=== PATIENT | male | born 1950 | race Caucasian/White ===

== ENCOUNTER 2025-06-01 00:04 | Emergency (ER) | payer MEDICARE, BC, SELFPAY ==
[2025-06-01] VITALS (10 sets, daily range): BP systolic 126–149; BP diastolic 58–75; PULSE 67–74; RESP 15–30; TEMP 36.1; O2SAT 95–98; BMI 25.9
--- NOTE | 2025-06-01 00:31 | ED.GENADULT ---
HPI - General Adult General Chief complaint: Urogenital-Male Stated complaint: Possible UTI, has Parkinson's Time Seen by Provider: 06/01/25 00:10 History of Present Illness HPI narrative: 74-year-old male patient history of Parkinson's was seen on the May 28 at [facility] with dark urine but not given any antibiotics and sent home. Today caregiver brings inpatient stating that he has been answering questions inappropriately and is concerned that there is something else going on. Patient states he fell few days ago and is having some left sided chest wall pain with breathing and movement. but otherwise has no other complaints head to toe. He denies fever, chills, bodyaches, sore throat, nausea, vomiting, diarrhea, urinary complaints, weakness, headache, dizziness. Other than what is stated 14 point review of system is negative. Related Data Previous Rx's ?Medication ?Instructions ?Recorded tamsulosin 0.4 mg capsule (Flomax) 0.4 mg PO DAILY #30 caps 06/01/25 Allergies Allergy/AdvReac Type Severity Reaction Status Date / Time Sulfa (Sulfonamide Allergy Verified 06/01/25 00:27 Antibiotics) Review of Systems Review of Systems ROS Unobtainable: All systems reviewed & are unremarkable except as noted in HPI and below Exam Narrative Exam Narrative: GENERAL: [74] year old patient appears stated age. Well-developed patient, in mild distress. HEAD: Atraumatic. Normocephalic. EYES: Pupils equal round and reactive. Extraocular motions intact. No scleral icterus. No injection or drainage. ENT: Nose without bleeding, purulent drainage. Throat without erythema, tonsillar hypertrophy or exudate. Airway patent. NECK: Trachea midline. Non tender CARDIOVASCULAR: Regular rate and rhythm without murmurs, gallops, or rubs. RESPIRATORY: Clear to auscultation. Breath sounds equal bilaterally. No wheezes, rales, or rhonchi. L sided chest wall TTP 6-10 GASTROINTESTINAL: Abdomen soft, non-tender, nondistended. EXTREMITIES: No edema or joint tenderness. BACK: Nontender without deformity or crepitance. No flank tenderness. NEURO: AOx3. SKIN: No rash or erythema of visible areas Medical Decision Making Imaging Data Chest x-ray: Radiologist's Impression: [address] [address] XRay Report Signed Patient: Freeman Brock MR#: [id number] : 1950 Acct:[id number] Age/Sex: 74 / M Date of Service: 06/01/25 Loc: ED Accession Number: [id number] Procedure: XR ribs LT 2V Ordering Provider: Jay He D.O. PROCEDURE: XR RIBS LT 2V INDICATIONS: fall/trauma TECHNIQUE: 3 views of the ribs were acquired. COMPARISON: None. FINDINGS: Surgical changes and devices: None. Bones and chest wall: No fractures or dislocations. No suspicious bony lesions. Overlying soft tissues appear unremarkable. Lungs and pleura: The visualized lung appears clear. No pleural effusions or pneumothorax are visible. IMPRESSION: No visualized acute fracture or dislocation. However, if clinical concern and/or pain persist, short interval imaging followup in 7-10 days is recommended, as occult injury cannot be definitively excluded. ECG Data Interpretation: NSR HR 72 DC 174 QRs [address]-t wave change No previous ekg to compare MDM Narrative Medical decision making narrative: Vital signs, nurse triage note, medication list, previous ER visits, and all imaging study reviewed. Bladder scan showed urinary retention 453 status post Parham placement and Flomax given. Normal white count BUN 27 creatinine 0.79 glucose 153 troponin less than 0.012. Chest x-ray showed no fracture or dislocation. Differential diagnosis includes dehydration, electrolyte derangement, UTI, pneumonia. [facility] ER paperwork visit reviewed. Patient at that time was also retaining urine 400 but at that time was not given parham catheter. Will have patient follow up with Urology MD this week and d/c home on flomax. Discharge Plan Departure Patient Disposition: Home Clinical Impression: Acute retention of urine Instructions: DI for Urinary Retention in Men Activity Restrictions/Additional Instructions: Return with new or worsening symptoms. Follow up with Urology referral call office for appointment. Take medicine as prescribed. Prescriptions: New tamsulosin [Flomax] 0.4 mg capsule 0.4 mg PO DAILY Qty: 30 0RF Referrals: Fortunato Ac DO [Physician, Urology] - 3-5 days Referral Note: Urine retention s/p parham catheter Emi Duarte ARNP [Primary Care Provider, Medical] Stand Alone Forms: Patient Portal/API
--- NOTE | 2025-06-01 00:35 | DI.RAD.S_ITS ---
PROCEDURE: XR RIBS LT 2V INDICATIONS: fall/trauma TECHNIQUE: 3 views of the ribs were acquired. COMPARISON: None. FINDINGS: Surgical changes and devices: None. Bones and chest wall: No fractures or dislocations. No suspicious bony lesions. Overlying soft tissues appear unremarkable. Lungs and pleura: The visualized lung appears clear. No pleural effusions or pneumothorax are visible. IMPRESSION: No visualized acute fracture or dislocation. However, if clinical concern and/or pain persist, short interval imaging followup in 7-10 days is recommended, as occult injury cannot be definitively excluded. Dictated by: Ann Callahan M.D. on 06/01/2025 at 1:27 Approved by: Ann Callahan M.D. on 06/01/2025 at 1:28
--- NOTE | 2025-06-01 00:54 | EKG_ITS ---
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
[2025-06-01 01:06] LABS: Add Manual Diff / Slide Review NO; Hematocrit 48.9 % (41-53); Hemoglobin 16.3 g/dL (13.5-17.5); Lymphocytes Absolute Auto 800 /uL (1100-4500); Mean Corpuscular HGB Conc 33.4 % (30-36); Mean Corpuscular Hemoglobin 30.9 PG (26-34); Mean Corpuscular Volume 92.5 fL (80-100); Platelet Count 181 X10^3/uL (150-400)
[2025-06-01] MEDS: LACTATED RINGERS 1,000 ML 1000 ML IV (01:28)
[2025-06-01 01:30] LABS: Alanine Aminotransferase 11 IU/L (<50); Albumin 4.5 g/dL (3.5-5.0); Albumin Globulin Ratio 1.4 (1.0-2.8); Alkaline Phosphatase 102 U/L (38-126); Blood Urea Nitrogen 27 mg/dL (9-20); Calcium 9.6 mg/dL (8.4-10.2); Carbon Dioxide 29 mmol/L (22-32); Chloride 102 mmol/L (98-107); Creatine Kinase 136 U/L (55-170); Estimated Glomerular Filt Rate > 60 mL/min (>60); Globulin 3.3 g/dL (1.7-4.1); Glucose 153 mg/dL (70-99); HEMOLYSIS 25 (0-50); Lipase 43 U/L (23-300); Potassium 4.0 mmol/L (3.4-5.1); Sodium 141 mmol/L (137-145); Total Protein 7.8 g/dL (6.3-8.2)
[2025-06-01 01:41] LABS: Troponin I < 0.012 ng/mL (0.01-0.034)
[2025-06-01] MEDS: LIDOCAINE 2% (GLYDO) 6 ML GEL TOP (02:25)
--- NOTE | 2025-06-01 02:37 | PC.NURSE ---
Pt noted to have redness around groin area during catheter placement. Ciara care provided and zinc applied. aware.
[2025-06-01 02:56] LABS: Ictotest Urine Negative (Negative)
[2025-06-01] MEDS: TAMSULOSIN 0.4 MG CAPSULE PO (02:58)
[2025-06-01] MEDS: FLUCONAZOLE 100 MG TABLET 150 MG PO (03:01)
== END 2025-06-01 03:04 | disposition home or self-care (01) ==
PROVIDERS: Emergency Provider Family Medicine; PCP Nurse Practitioner Family
DX: R33.9 Retention of urine, unspecified (principal); R46.89 Other symptoms and signs involving appearance and behavior; R07.89 Other chest pain; G20.A1 Parkinson's disease without dyskinesia, without mention of fluctuations; W19.XXXA Unspecified fall, initial encounter
CPT/HCPCS: 36415; 51701; 51798; 71100; 80053; 81003; 82550; 83690; 84484; 85025; 93005; 96360; 99284